=== PATIENT | female | born 1960 | race Caucasian/White ===

== ENCOUNTER 2018-09-01 11:04 | Day surgery (SDC) | payer BC ==
[~2018-09-01] VITALS: Ht 154.9 cm; Wt 73.5 kg
[~2018-09-01 11:04] MED LIST: ALBU8.5H8; OMEPRAZOLE
[2018-09-01] MEDS ORDERED: sertraline (12:43)
[2018-09-01] MEDS ORDERED: pantoprazole (12:43)
[2018-09-01] MEDS ORDERED: ventolin hfa (12:43)
[2018-09-01] MEDS ORDERED: dicyclomine (12:43)
[2018-09-01] MEDS ORDERED: azelastine (12:43)
[2018-09-01 12:48] VITALS: Ht 154.9 cm; Wt 73.5 kg
[2018-09-01 13:49] VITALS: BP 159/80; PULSE 71; RESP 14
[2018-09-01] MEDS ORDERED: LIDOCAINE 4% SOLUTION 50 ML BTL ONE (14:18)
[2018-09-01] MEDS ORDERED: MIDAZOLAM 1 MG/ML 2 ML INJ ONE ×2 (14:54)
[2018-09-01] MEDS ORDERED: FENTAnyl 50 MCG/ML VIAL ONE (14:54)
== END 2018-09-01 16:09 | disposition home or self-care (01) ==
LOC: GIL 11:04
PROVIDERS: ATTEND Internal Medicine
DX: Z12.11 Encounter for screening for malignant neoplasm of colon (principal); K57.30 Diverticulosis of large intestine without perforation or abscess without bleeding; K20.8 Other esophagitis; K29.00 Acute gastritis without bleeding
CPT/HCPCS: 43239; 45378; 88305; 88312; J2250; J3010; Z7610